=== PATIENT | male | born 1975 | race Caucasian/White ===

== ENCOUNTER 2020-05-01 00:46 | Emergency (ER) | payer SELFPAY ==
[~2020-05-01] VITALS: Ht 167.6 cm; Wt 79.0 kg
[2020-05-01] MEDS ORDERED: HALOPERIDOL LACTATE 5MG/ML VIAL IM STA (00:59)
[2020-05-01] MEDS ORDERED: SODIUM CHLORIDE 0.9% 1,000 ML IV ONE (00:59)
[2020-05-01] MEDS ORDERED: LORAZEPAM 2MG/ML CPJ IM STA (00:59)
[2020-05-01 01:15] LABS: BASOPHILS % 0.5 % (0.0-2.0); EOSINOPHILS % 0.3 % (0.0-5.0); HEMATOCRIT. 37.7 % (42.0-52.0); LYMPHOCYTES % 32.4 % (20.0-50.0); MEAN CORPUSCULAR VOLUME 92.8 fL (80.0-94.0); MEAN PLATELET VOLUME 8.3 fl (7.4-10.4); MONOCYTES % 8.4 % (2.0-8.0); NEUTROPHILS % 58.4 % (40.0-76.0); PLATELET 224 x1000/uL (130-400); RED BLOOD CELL COUNT 4.06 mill/uL (4.7-6.1); RED CELL DISTRIBUTION WIDTH 14.1 % (11.6-14.6)
[2020-05-01 01:22] LABS: CHLORIDE 110 mEq/L (98-107)
[2020-05-01 01:26] LABS: ETHANOL BLOOD < 10 mg/dL
[2020-05-01 02:14] LABS: CLARITY URINE CLEAR (CLEAR); COLOR URINE YELLOW (YELLOW); KETONES URINE TRACE (NEGATIVE); LEUKOCYTE ESTERASE URINE NEGATIVE (NEGATIVE); NITRITE URINE NEGATIVE (NEGATIVE); OCCULT BLOOD URINE TRACE (NEGATIVE); PH URINE 5.5 (4.5-8.0); PROTEIN URINE NEGATIVE (NEGATIVE); SPECIFIC GRAVITY URINE 1.029 (1.005-1.030); UROBILINOGEN URINE 0.2 E.U./dL (0.2-1.0)
[2020-05-01 02:22] LABS: *AMPHETAMINES SCREEN URINE PRESUMTIVE POSITIVE (NEGATIVE); *BARBITURATES SCREEN URINE NEGATIVE (NEGATIVE); *BENZODIAZEPINES SCREEN URINE NEGATIVE (NEGATIVE); *COCAINE SCREEN URINE NEGATIVE (NEGATIVE); METHADONE URINE SCREEN NEGATIVE (NEGATIVE); OPIATES URINE SCREEN NEGATIVE (NEGATIVE)
[2020-05-01 02:23] LABS: CANNABINOID URINE SCREEN NEGATIVE (NEGATIVE); PHENCYCLIDINE URINE SCREEN NEGATIVE (NEGATIVE)
[2020-05-01 20:41] VITALS: BP 131/74
== END 2020-05-01 20:41 | disposition home or self-care (01) ==
LOC: ER 00:52
DX: R45.1 Restlessness and agitation (principal); F15.10 Other stimulant abuse, uncomplicated; T43.625A Adverse effect of amphetamines, initial encounter; Y92.89 Other specified places as the place of occurrence of the external cause; F32.9 Major depressive disorder, single episode, unspecified
CPT/HCPCS: 36415; 70450; 80053; 80305; 80307; 80320; 80329; 81003; 84443; 85025; 93005; 96372; 99285; J1630; J2060; J7030; G0480